=== PATIENT | male | born 1970 | race Two or more races ===

== ENCOUNTER → 2020-09-01 | Emergency (ER) | payer OTHER ==
[~2020-09-01] VITALS: Ht 180.3 cm; Wt 67.1 kg
[~2020-09-01] MED LIST: ACETAMINOPHEN650 M2; HYDROCORTISON28.4 G6 TOP
== END | disposition home or self-care (01) ==
LOC: ER 00:16
DX: L29.1 Pruritus scroti (principal); L53.8 Other specified erythematous conditions